=== PATIENT | female | born 1950 | race African-American/Black ===

== ENCOUNTER 2017-12-10 21:28 | Inpatient (IN) | payer MEDICARE ==
[~2017-12-10] VITALS: Ht 160 cm; Wt 64.9 kg
[2017-12-10 23:16] LABS: BASOPHILS % 0.8 % (0.0-2.0); EOSINOPHILS % 1.5 % (0.0-5.0); HEMATOCRIT. 37.5 % (36.0-48.0); HEMOGLOBIN. 12.5 g/dL (12.0-16.0); LYMPHOCYTES % 34.9 % (20.0-50.0); MEAN CORPUSCULAR HEMOGLOBIN 32.4 pg (28.0-32.0); MEAN PLATELET VOLUME 8.4 fl (7.4-10.4); MONOCYTES % 11.1 % (2.0-8.0); NEUTROPHILS % 51.7 % (40.0-76.0); PLATELET 200 x1000/uL (130-400); RED BLOOD CELL COUNT 3.87 mill/uL (4.2-5.4); RED CELL DISTRIBUTION WIDTH 13.6 % (11.6-14.6)
[2017-12-10 23:23] LABS: PROTHROMBIN TIME 10.5 sec (9.1-11.1)
[2017-12-10 23:28] LABS: CHLORIDE 106 mEq/L (98-107)
[2017-12-10 23:35] LABS: ETHANOL BLOOD < 10 mg/dL; LDL CHOLESTEROL 91 mg/dL (5-100)
[2017-12-11] MEDS ORDERED: ASPIRIN 325MG TABLET PO NR (00:30)
[2017-12-11] MEDS ORDERED: MAGNESIUM/ALUMINUM HYDROXIDE/SIMETHICONE 30ML UDC PO PRN (01:30)
[2017-12-11] MEDS ORDERED: CLONIDINE 0.1MG TABLET PO PRN (01:30)
[2017-12-11] MEDS ORDERED: ACETAMINOPHEN 325MG TABLET PO PRN (01:30)
[2017-12-11] MEDS ORDERED: ONDANSETRON HCL 4MG/2ML INJ IV PRN (01:30)
[2017-12-11] MEDS ORDERED: LORAZEPAM 0.5MG TABLET PO PRN (01:30)
[2017-12-11 03:21] LABS: CLARITY URINE CLOUDY (CLEAR); COLOR URINE YELLOW (YELLOW); KETONES URINE NEGATIVE (NEGATIVE); LEUKOCYTE ESTERASE URINE 1+ (NEGATIVE); NITRITE URINE NEGATIVE (NEGATIVE); OCCULT BLOOD URINE NEGATIVE (NEGATIVE); PH URINE 7.5 (4.5-8.0); PROTEIN URINE NEGATIVE (NEGATIVE); UROBILINOGEN URINE 0.2 E.U./dL (0.2-1.0)
[2017-12-11 03:30] VITALS: BP 135/55
[2017-12-11 03:45] VITALS: BP 135/55
[2017-12-11 03:47] LABS: *AMPHETAMINES SCREEN URINE NEGATIVE (NEGATIVE); *BARBITURATES SCREEN URINE NEGATIVE (NEGATIVE); *BENZODIAZEPINES SCREEN URINE NEGATIVE (NEGATIVE); *COCAINE SCREEN URINE NEGATIVE (NEGATIVE)
[2017-12-11 03:48] LABS: CANNABINOID URINE SCREEN NEGATIVE (NEGATIVE); METHADONE URINE SCREEN NEGATIVE (NEGATIVE); OPIATES URINE SCREEN NEGATIVE (NEGATIVE); PHENCYCLIDINE URINE SCREEN NEGATIVE (NEGATIVE)
[2017-12-11] MEDS ORDERED: CEFTRIAXONE 1 G PREMIX 50 ML IV ONE (04:00)
[2017-12-11] MEDS: TEMAZEPAM 15MG CAPSULE PO PRN ×2 (05:07→21:17)
[2017-12-11] MEDS: TRAZODONE HCL 50MG TABLET PO SCH ×2 (05:07→21:16)
[2017-12-11] MEDS: SODIUM CHLORIDE 0.9% INJ 3ML FLUSH IVF SCH ×3 (05:07→21:17)
[2017-12-11] MEDS ORDERED: BUPR200T2 PO (05:13)
[2017-12-11] MEDS ORDERED: ASPI-864 PO (05:13)
[2017-12-11] MEDS ORDERED: PARO10TA87 PO (05:13)
[2017-12-11] MEDS ORDERED: AMLO10TA4 PO (05:13)
[2017-12-11] MEDS ORDERED: TEMA30CA PO (05:13)
[2017-12-11] MEDS ORDERED: TRAZ150T78 PO (05:13)
[2017-12-11] MEDS ORDERED: LISI2.5T47 PO (05:13)
[2017-12-11] MEDS ORDERED: IOHEXOL-350 100 ML BOTTLE ONE (06:34)
[2017-12-11 08:00] VITALS: BP 116/56
[2017-12-11] MEDS: AMLODIPINE 10MG TABLET PO SCH (09:06)
[2017-12-11] MEDS: PAROXETINE HCL 10MG TABLET PO SCH (09:06)
[2017-12-11] MEDS: BUPROPION HCL 75MG TABLET PO SCH ×2 (11:02→21:17)
[2017-12-11 12:00] VITALS: BP 100/50
[2017-12-11 16:00] VITALS: BP 121/62
[2017-12-11 20:00] VITALS: BP 104/50
[2017-12-12] VITALS: BP 105/66
[2017-12-12 04:00] VITALS: BP 117/61
[2017-12-12] MEDS: SODIUM CHLORIDE 0.9% INJ 3ML FLUSH IVF SCH (06:20)
[2017-12-12 08:27] VITALS: BP 107/54
[2017-12-12] MEDS: AMLODIPINE 10MG TABLET PO SCH (09:00)
[2017-12-12] MEDS: PAROXETINE HCL 10MG TABLET PO SCH (09:47)
[2017-12-12] MEDS: BUPROPION HCL 75MG TABLET PO SCH (09:47)
[2017-12-12 12:00] VITALS: BP 146/68
[2017-12-12 16:00] VITALS: BP 118/73
[2017-12-12 18:28] VITALS: BP 118/73
== END 2017-12-12 20:35 | disposition home or self-care (01) | DRG 66 ==
LOC: ER 21:28 → 5WST 12-11 00:31 → EDBEDREQTM 12-11 00:47 → EDBEDREQSVC 12-11 00:47 → EDBEDREQ 12-11 00:47 → EDBEDREQDT 12-11 00:47 → ENRESERV 12-11 02:51
PROVIDERS: ADMIT Internal Medicine; ATTEND Internal Medicine
DX: I63.9 Cerebral infarction, unspecified (principal); F15.10 Other stimulant abuse, uncomplicated; F32.9 Major depressive disorder, single episode, unspecified; H53.2 Diplopia; H91.91 Unspecified hearing loss, right ear; H49.23 Sixth [abducent] nerve palsy, bilateral; I10 Essential (primary) hypertension; Z82.49 Family history of ischemic heart disease and other diseases of the circulatory system; Z79.899 Other long term (current) drug therapy; Z79.82 Long term (current) use of aspirin
CPT/HCPCS: 36415; 70496; 70551; 71045; 80061; 80305; 83721; 84484; 93005; 93880; 97162; 97166; 97535; 99291; G0482; Q9967

== ENCOUNTER 2021-10-08 21:59 | Emergency (ER) | payer BC, MEDICARE ==
[~2021-10-08] VITALS: Ht 160 cm; Wt 70.4 kg
[~2021-10-08 21:59] MED LIST: AMLO10TA4 PO; ASPI-864 PO; BUPR200T2 PO; LISI2.5T47 PO; PARO10TA87 PO; TEMA30CA PO; TRAZ150T78 PO
[2021-10-09 02:00] VITALS: BP 152/61
== END 2021-10-09 02:24 | disposition home or self-care (01) ==
LOC: ER 21:59
DX: R42 Dizziness and giddiness (principal); I10 Essential (primary) hypertension; R94.31 Abnormal electrocardiogram [ECG] [EKG]; Z91.81 History of falling
CPT/HCPCS: 93005; 99284

== ENCOUNTER 2021-10-19 05:06 | Emergency (ER) | payer BC ==
[~2021-10-19] VITALS: Ht 162.6 cm; Wt 73.0 kg
[2021-10-19] MEDS ORDERED: MORPHINE SULFATE 4 MG/ML CPJ (NOT FOR IM USE) IV STA (05:58)
[2021-10-19] MEDS ORDERED: ONDANSETRON HCL 4MG/2ML INJ IV STA (05:58)
[2021-10-19 06:23] LABS: HEMATOCRIT. 30.9 % (36.0-48.0); HEMOGLOBIN. 10.6 g/dL (12.0-16.0); LYMPHOCYTES % 19.2 % (20.0-50.0); MEAN CORPUSCULAR HEMOGLOBIN 32.3 pg (28.0-32.0); MEAN CORPUSCULAR VOLUME 94.4 fL (81.0-99.0); MEAN PLATELET VOLUME 8.7 fl (7.4-10.4); MONOCYTES % 10.4 % (2.0-8.0); NEUTROPHILS % 66.4 % (40.0-76.0); PLATELET 186 x1000/uL (130-400); RED BLOOD CELL COUNT 3.28 mill/uL (4.2-5.4); RED CELL DISTRIBUTION WIDTH 13.6 % (11.6-14.6)
[2021-10-19 06:37] LABS: CHLORIDE 110 mEq/L (98-107)
[2021-10-19 07:56] LABS: CLARITY URINE CLEAR (CLEAR); COLOR URINE YELLOW (YELLOW); KETONES URINE 1+ (NEGATIVE); LEUKOCYTE ESTERASE URINE NEGATIVE (NEGATIVE); NITRITE URINE NEGATIVE (NEGATIVE); OCCULT BLOOD URINE NEGATIVE (NEGATIVE); PROTEIN URINE 1+ (NEGATIVE); UROBILINOGEN URINE 0.2 E.U./dL (0.2-1.0)
[2021-10-19] MEDS ORDERED: ACET-2708 MT (10:35)
[2021-10-19] MEDS ORDERED: BACL-141 MT (10:35)
[2021-10-19] MEDS ORDERED: LIDO700A15 TP (10:35)
[2021-10-19 10:46] VITALS: BP 146/61
== END 2021-10-19 11:05 | disposition home or self-care (01) ==
LOC: ER 05:06
DX: R10.12 Left upper quadrant pain (principal); R11.0 Nausea; I10 Essential (primary) hypertension; Z00.00 Encounter for general adult medical examination without abnormal findings; Z79.899 Other long term (current) drug therapy
CPT/HCPCS: 36415; 71045; 74176; 80053; 81003; 83690; 84484; 85025; 93005; 96374; 96375; 99285; J2270; J2405